=== PATIENT | female | born 1995 ===

== ENCOUNTER 2021-08-12 11:15 | Inpatient (IN) | payer OTHER ==
[~2021-08-12] VITALS: Ht 167.6 cm; Wt 99.8 kg
[2021-08-24] MEDS ORDERED: FOLIC ACID0.8 M1 (08:53)
[2021-08-24] MEDS ORDERED: PRENATAL + DHA1 EAC1 PO (08:53)
== END 2021-08-24 12:26 | disposition home or self-care (01) | DRG 807 ==
LOC: SURH 08-20 11:15 → EDBD 08-20 11:15 → LDR 08-21 20:08 → OB/GYN 08-22 17:17
PROVIDERS: ADMIT Specialist; ATTEND Specialist
PROC: 10E0XZZ Delivery of Products of Conception, External Approach (ICD-10-PCS; principal; 2021-08-21)
PROC: 0KQM0ZZ Repair Perineum Muscle, Open Approach (ICD-10-PCS; 2021-08-21)
PROC: 10907ZC Drainage of Amniotic Fluid, Therapeutic from Products of Conception, Via Natural or Artificial Opening (ICD-10-PCS; 2021-08-21)
PROC: 3E0P7VZ Introduction of Hormone into Female Reproductive, Via Natural or Artificial Opening (ICD-10-PCS; 2021-08-21)
PROC: 4A1HXFZ Monitoring of Products of Conception, Cardiac Rhythm, External Approach (ICD-10-PCS; 2021-08-21)
DX: O70.1 Second degree perineal laceration during delivery (principal); Z37.0 Single live birth; Z3A.40 40 weeks gestation of pregnancy

== ENCOUNTER 2021-08-16 11:26 | Outpatient (CLI) | payer OTHER | END 2021-08-16 11:56 | disposition home or self-care (01) | LOC: NST 11:26 | PROVIDERS: ATTEND Specialist | DX: Z34.83 Encounter for supervision of other normal pregnancy, third trimester (principal) ==